=== PATIENT | female | born 1975 | race Caucasian/White ===

== ENCOUNTER 2016-10-15 00:08 | Emergency (ER) | payer MEDICARE, MEDICAID ==
--- NOTE | ~2016-10-15 | ER ---
PATIENT'S NAME: JAZZMINE LOPEZ [facility] AGE: 40 Y [address] ROOM: [place] [id number] LOCATION: [facility] ADMIT DATE: 10/15/2016 ER/Outpatient Report DISCHARGE DATE: 10/15/2016 FAMILY PHYSICIAN: Physician, Unknown ATTENDING PHYSICIAN: Aline Krishnamurthy Time of Arrival: 001. Time of Evaluation: 10. CHIEF COMPLAINT: Pain in her right legs. HISTORY OF PRESENT ILLNESS: The patient states she received a burn on her right lower extremity 6 days ago. She saw her primary care doctor at that time who gave her Silvadene to put on her leg twice daily. She comes to the emergency department tonight because of increased pain. She states it has gradually increased over the last 6 days and has made it difficult to walk. She currently ranks her pain 9/10. She has been taking Aleve and Tylenol for pain relief with minimal effectiveness. She denies any fevers, shortness of breath, chest pain, abdominal pain, nausea, vomiting, or diarrhea. Denies any vision changes. She denies any muscle weakness of sensation deficits. PAST MEDICAL HISTORY: Stroke 4 years ago and another stroke when she was 3 years old. She has mild right-sided weakness and dysarthria as a result. History of seizures, hypertension, GERD, and heart murmur. She denies any drug use, alcohol, or smoking. MEDICATIONS: 1. Tylenol. 2. Aspirin. 3. Iron. 4. Divalproex. 5. Toprol. 6. Ranitidine. ALLERGIES: SHE HAS NO KNOWN DRUG ALLERGIES. REVIEW OF SYSTEMS: All systems were reviewed by me and were negative with the exception of those discussed in the HPI. PHYSICAL EXAMINATION: PATIENT'S NAME: JAZZMINE LOPEZ [facility] AGE: 40 Y [address] ROOM: [place], [place] [address] LOCATION: [facility] ADMIT DATE: 10/15/2016 ER/Outpatient Report DISCHARGE DATE: 10/15/2016 FAMILY PHYSICIAN: Physician, Unknown ATTENDING PHYSICIAN: Aline Krishnamurthy VITALS: Weight of 111.7 kg, blood pressure of 171/105, pulse of 77, respirations of 16, temperature 98.1, saturation 95% on room air. GENERAL: The patient was alert and oriented x3. Cranial nerves II through XII were grossly intact. The patient did have mild to moderate dysarthria. HEENT: Eyes were equal and reactive to light. LUNGS: Her lungs were clear to auscultation bilaterally. No wheezes or crackles. Normal respiratory effort. HEART: Regular rate and rhythm. Normal S1 and S2. I could not appreciate the murmur she mentioned. ABDOMEN: Soft, nontender. Bowel sounds were normal. EXTREMITIES: She was able to move all limbs spontaneously. No muscle weakness appreciated on either side and her sensation was intact bilaterally. She had a large burn on the lower right extremity. The border of the burn is well demarcated with no erythema extending beyond. She has some moderate tenderness around the outside of her burn. No swelling appreciated of either lower extremity. LABS AND X-RAYS: None were performed. IMPRESSION: Burn. EMERGENCY DEPARTMENT COURSE: History and physical were taken. The patient has well healing burn on the right lower extremity. No recent bleeds. She currently has an infection, so do not feel systemic antibiotics would be appropriate at this time. The patient has only taken Aleve and Tylenol for pain control. Given the severity of her burn, feel as though stronger pain management is appropriate. The patient was given morphine in the ED. DISPOSITION: The patient was then discharged to home in good condition with a script for [place] 5/325, 10 tablets, to take q.6 to 8 hours p.r.n. The patient told to return if she develops pus or increased erythema surrounding her wound or fevers or chills. The patient also advised to follow up with her PCP in the next 2 to 3 days to reevaluate her wound. Also, advised the patient to continue to use Silvadene twice daily and to change her dressing at these times. Encouraged the patient to drink lots of fluids and ensure she does not become constipated with [place] and to take some [id number] laxatives if she finds herself with fewer bowel movements. PATIENT'S NAME: JAZZMINE LOPEZ [facility] AGE: 40 Y [address] ROOM: [place] [address] LOCATION: [facility] ADMIT DATE: 10/15/2016 ER/Outpatient Report DISCHARGE DATE: 10/15/2016 FAMILY PHYSICIAN: Physician, Unknown ATTENDING PHYSICIAN: Aline Krishnamurthy MD FOR ALINE KRISHNAMURTHY DO KV/modl /[id number] ATTENDING ADDENDUM: I saw and evaluated the patient. I have discussed with the resident, agree with the resident's findings and plan and agree with the documented note above. ALINE KRISHNAMURTHY DO d: 10/15/16 0325 t: 10/19/16 0646, OUTPATIENT REPORT
== END 2016-10-15 01:05 | disposition disaster alternative care site (69) ==
LOC: GACC 00:08
DX: T24.001D Burn of unspecified degree of unspecified site of right lower limb, except ankle and foot, subsequent encounter (principal); I10 Essential (primary) hypertension; G40.909 Epilepsy, unspecified, not intractable, without status epilepticus; Z86.73 Personal history of transient ischemic attack (TIA), and cerebral infarction without residual deficits; Z79.82 Long term (current) use of aspirin; Z79.899 Other long term (current) drug therapy; X08.8XXD Exposure to other specified smoke, fire and flames, subsequent encounter
CPT/HCPCS: J2270